=== PATIENT | female | born 1985 | race Caucasian/White ===

== ENCOUNTER → 2017-02-01 | Outpatient (CLI) | payer BC, OTHER ==
[~2017-02-01] MED LIST: ACET-1256 PO; AMPH10TA2 PO; BCTROWC TOP; CLB/200 PO; ETONMIS VAGRING; IBUP-1459 PO; MISCCAP80 PO; MULT-190 PO; NAPR1TAB9 PO; SPIR50TA2 PO
--- NOTE | 2017-02-01 13:42 | DIAGNOSTIC IMAGING REPORT ---
RIGHT HIP 2 VIEWS HISTORY: RIGHT HIP PAIN Right COMPARISON: None. FINDINGS: There is no fracture or dislocation. Soft tissues are unremarkable. No radiopaque foreign bodies. Cartilage spaces are maintained. The visualized pelvic bones are intact. IMPRESSION: No fractures. Electronically signed by: Petar Stallworth M.D. 02/01/2017 1:40 PM Dictated Date/Time: 02/01/2017 1:39 PM
== END | disposition home or self-care (01) ==
LOC: C.RDSM 13:45
PROVIDERS: ATTEND Physician Assistant
DX: M25.551 Pain in right hip (principal)

== ENCOUNTER 2017-03-21 02:12 | Emergency (ER) | payer BC, OTHER ==
[~2017-03-21] VITALS: Ht 152.4 cm; Wt 61.3 kg
[~2017-03-21 02:12] MED LIST changes: -ACET-1256 PO; -CLB/200 PO; -MISCCAP80 PO; -MULT-190 PO; -SPIR50TA2 PO
[2017-03-21 02:18] VITALS: TEMP 36.6; Ht 152.4 cm; Wt 61.3 kg
[2017-03-21] MEDS ORDERED: SPIR50TA2 PO (02:56)
[2017-03-21] MEDS ORDERED: MULT-190 PO (03:00)
[2017-03-21] MEDS ORDERED: HIV POST EXPOSURE PROPHYLAXIS KIT ONE (03:00)
[2017-03-21] MEDS ORDERED: MISCCAP80 PO (03:01)
[2017-03-21] MEDS ORDERED: ACET-1256 PO (03:03)
[2017-03-21] MEDS ORDERED: CLB/200 PO (03:04)
--- NOTE | 2017-03-21 03:19 | EMERGENCY ROOM VISIT NOTE ---
ED Visit Note First contact with patient: 02:22 CHIEF COMPLAINT: Body Fluid exposure HPI: This 31-year-old female presents to the Emergency Department ambulatory for evaluation of a body fluid exposure which occurred just prior to arrival. 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 She is unsure of the history of the source patient. She states that he is an elderly demented male. There is no bleeding. They deny numbness, tingling, or loss of motion. They have had the hepatitis B. vaccination. They believe their tetanus is up-to-date. Pain is 0/10. ALLERGIES: No known drug allergies MEDICATIONS: See med list PMH: No significant past medical history. SOCIAL HISTORY: The patient lives locally. Nonsmoker. Physical Exam: VITALS: Nursing notes reviewed and vitals are stable. GENERAL: This is a 31-year-old female, anxious appearing, well developed, well nourished. SKIN: Warm and dry with good turgor. No abrasions. There is a solitary puncture jasvir present at the distal right second finger. No bleeding. Capillary refill is 2+. MUSCULOSKELETAL: Patient has full active range of motion of the finger. Normal strength. NEURO: Gross sensation is intact across the finger. ED COURSE: I examined the patient. Option of HIV, hepatitis C, and hepatitis B testing was discussed with the patient. The risks, benefits, purpose, and limitations of the tests were explained to the patient and all of their questions were answered. They elected to proceed. I did perform pretest counseling and the appropriate consent forms were signed. Patient was given information on prevention of exposure and transmission as well as hospital confidentiality. The patient's blood was drawn. Risks and benefits of HIV prophylaxis were discussed with the patient. I had a lengthy discussion with the patient regarding the risks and benefits of HIV prophylaxis. At this time, I did not feel that prophylaxis was indicated given this exposure. However, the patient was insistent that she would like prophylaxis until the testing is complete for the source patient. She was given a starter kit. She will follow-up with [facility]. Wound care instructions were provided. The patient was discharged in stable condition. Impression: Body fluid exposure Plan: Follow up with employee health for further evaluation, treatment, and test results. Current/Historical Medications Scheduled Etonogestrel/Ethinyl Estradiol (Nuvaring), 1 EA VAGRING MONTHLY Ocuvite Preservision (Ocuvite Preservision), 1 TAB PO DAILY Probiotic Product (Probiotic), 1 CAP PO DAILY Spironolactone (Aldactone), 50 MG PO BID Scheduled PRN Acetaminophen (Tylenol), 500 MG PO Q12 PRN for Pain Celecoxib (CeleBREX), 200 MG PO DAILY PRN for Pain Allergies Coded Allergies: No Known Allergies (Unverified , 03/21/17) Vital Signs Date Time Temp Pulse Resp B/P (MAP) Pulse Ox O2 Delivery O2 Flow Rate FiO2 03/21/17 03:24 63 18 112/78 98 03/21/17 02:18 36.6 78 18 118/82 99 Room Air Laboratory Results Test 03/21/17 03:10 Hepatitis B Surface Antibody POS Hepatitis C Antibody NEG (NEG) HIV (1&2) Ab and P24 Ag, 4th Gener NEG (NEG) Medications Administered Medications (Trade) Dose Ordered Sig/Rosalina Route Start Time Stop Time Status Last Admin Dose Admin Miscellaneous (Hiv Post Exposure Prophylaxis Kit) 1 ea NOW ONCE N/A 03/21/17 03:00 03/21/17 03:01 DC 03/21/17 03:07 1 EA Departure Information Impression Primary Impression: Needlestick injury accident Dispostion Home / Self-Care Condition GOOD Referrals Mimi Sagastume MD (PCP) Patient Instructions My [facility] Additional Instructions Follow-up with your employee health provider as needed. Problem Qualifiers Primary Impression: Needlestick injury accident Encounter type: initial encounter Qualified Codes: W27.3XXA - Contact with needle (sewing), initial encounter
[2017-03-21 03:24] VITALS: BP 112/78; PULSE 63; O2SAT 98
[2017-03-21 04:10] LABS: HEPATITIS B AB POS
== END 2017-03-21 03:28 | disposition home or self-care (01) ==
LOC: C.EDB 02:13
DX: S61.230A Puncture wound without foreign body of right index finger without damage to nail, initial encounter (principal); W46.0XXA Contact with hypodermic needle, initial encounter; Y99.0 Civilian activity done for income or pay; Y92.129 Unspecified place in nursing home as the place of occurrence of the external cause; Z79.899 Other long term (current) drug therapy